=== PATIENT | male | born 1950 | race Hispanic/Latino ===

== ENCOUNTER 2017-02-22 00:49 | Emergency (ER) | payer OTHER, MEDICAID ==
[2017-02-22 00:50] VITALS: BMI 30.1
[2017-02-22] MEDS ORDERED: Oxycodone/Acetaminophen 5/325 mg Tab ONE (05:27)
--- NOTE | 2017-02-22 12:17 | RAD ---
PROCEDURE: Left Femur Radiographs. HISTORY: Pain in left hip COMPARISON: None. TECHNIQUE: AP and Lateral Radiographs of the left femur. FINDINGS: FEMUR: Normal. No fracture. SOFT TISSUES: Normal. OTHER FINDINGS: None. IMPRESSION: Unremarkable radiographs of the left femur.
--- NOTE | 2017-02-22 13:51 | RAD ---
PROCEDURE: Left Hip X-ray Radiographs. HISTORY: Left hip pain COMPARISON: None. FINDINGS: BONES: No destructive bony lesion identified. Pelvic ring appears intact as well as left hip joint. No fracture. JOINTS: Degenerative changes are advanced at the left hip joint and a moderate at the bilateral sacroiliac joints. Right hip joint also appears relatively prominently sclerosis at the articular cortex as well indicative of advanced degenerative joint disease. Pubic symphysis appears intact. SOFT TISSUES: Breast calcification identified in the pelvis. OTHER FINDINGS: None. IMPRESSION: Degenerative joint changes seen at the bilateral hip and sacroiliac joints but no fracture of the left hip is appreciated or the pelvic ring overall.
== END 2017-02-22 06:59 | disposition home or self-care (01) ==
LOC: ED 00:49
DX: S80.12XA Contusion of left lower leg, initial encounter (principal); W19.XXXA Unspecified fall, initial encounter; E11.9 Type 2 diabetes mellitus without complications